=== PATIENT | female | born 1955 | race Caucasian/White ===

== ENCOUNTER 2021-04-14 04:15 | Inpatient (IN) | payer MEDICARE ==
[~2021-04-14] VITALS: Ht 157.5 cm; Wt 88.0 kg
--- NOTE | 2021-04-14 04:29 | PHYS DOC ---
General Adult EDM: Chief Complaint: ALTERED MENTAL STATUS HPI: HPI: Patient is a 65-year-old female coming in from nursing facility for altered mental status and combative behavior. Patient was found around 2:30 in the morning on the floor of her room and was combative with staff trying to bite and scratch. Patient was doing things around the room from the floor and knocked her dresser over. On EMS arrival she would answer questions correctly but was still being aggressive. They discussed with her DPOA which is her mother, who agreed to have her sedated with ketamine to come to the emergency department for evaluation. She has been at the medical [place] for 4 days for rehabilitation after a urinary tract infection. (CASSIUS MUÑIZ MD) Review of Systems: Review of Systems: All other systems within normal limits except for as noted in the HPI (CASSIUS MUÑIZ MD) Physical Exam: PE: Constitutional: Well developed, well nourished, no acute distress, non-toxic ashlyn earance. [] HENT: Normocephalic, atraumatic, bilateral external ears normal, nose normal. [] Eyes: PERRLA, conjunctiva normal, no discharge. [] Neck: No rigidity, supple, no stridor. [] Cardiovascular: Regular rate and rhythm, brisk cap refill [] Lungs & Thorax: Non labored symmetric respirations, no tachypnea or respiratory distress [] Abdomen: Soft, nondistended. Skin: Warm, dry, no erythema, no rash. [] Back: Unremarkable Extremities: No deformities, range of motion grossly intact, no lower extremity edema [] Neurologic: Alert but sedated with ketamine Psychologic: Unable to assess [] (CASSIUS MUÑIZ MD) EKG: EKG: Sinus rhythm, heart rate 86 bpm, left axis deviation, no ST elevation or depression, no ectopy. [] (CASSIUS MUÑIZ MD) Radiology/Procedures: Radiology/Procedures: [] (CASSIUS MUÑIZ MD) Impressions: PQRS Compliance Statement: One or more of the following individualized dose reduction techniques were utilized for this examination: 1. Automated exposure control 2. Adjustment of the mA and/or kV according to patient size 3. Use of iterative reconstruction technique CT HEAD AND CERVICAL SPINE WITHOUT CONTRAST History: Reason: fall, ams / Spl. Instructions: / History: Comparison: None. Procedure: Axial images are obtained of the head from the skull base through the vertex without IV contrast. Noncontrast helical CT of the cervical spine was performed. Axial, sagittal, and coronal reconstructions were obtained. Findings: The ventricles and sulci are normal for the patient's age. No mass-effect, midline shift, hemorrhage or obvious acute infarction is identified. Basilar cisterns are patent. Bone windows demonstrate no significant calvarial abnormality. There is a mucous retention cyst in the right maxillary sinus. No air-fluid level is seen. Mastoid air cells are well aerated. There is no evidence of acute fracture or acute malalignment of the cervical spine. There are no perched or jumped facet joints. There is ACDF hardware of C2-C7. There are interbody spacers at the upper 3 disc spaces and bone graft material of the lower 2 disc spaces. There is grade 1 anterolisthesis of C7 on T1. The alignment is otherwise maintained. Facet joints are fused. There is a 9 mm nodule containing a 3 mm calcification in the right parotid gland. The visualized lung apices are clear. IMPRESSION: 1. No acute intracranial abnormality. 2. No acute fracture of the cervical spine. 3. Small right parotid gland nodule. Recommend outpatient ultrasound. Electronically signed by: Marshall Roach MD (04/14/2021 7:51 AM) [id number] DICTATED AND SIGNED BY: MARSHALL ROACH MD DATE: 04/14/21 0743 CC: CASSIUS MUÑIZ MD; IAN KRAMER DO; YOSSI CID ~MTH0 0 CT scan of the abdomen and pelvis with contrast 04/14/2021 CLINICAL HISTORY: Sepsis. TECHNIQUE: After the intravenous administration of 75 cc of Omnipaque 300 only, contiguous, 5 mm axial sections were obtained through the abdomen and pelvis. One or more of the following individualized dose reduction techniques were utilized for this study: 1. Automated exposure control. 2. Adjustment of the mA and/or kV according to patient size. 3. Use of iterative reconstruction technique. FINDINGS: Images through the lung bases demonstrate mild cardiomegaly. Dependent subsegmental atelectasis is seen involving both lungs. The liver, spleen, pancreas, right adrenal gland and kidneys are within normal limits. A 2.7 cm rounded low-attenuation nodule seen involving left adrenal gland consistent with an adrenal adenoma. Atherosclerotic calcification of the abdominal aorta is seen. The abdominal aorta tapers normally. Surgical clips are seen within the gallbladder fossa consistent with a cholecystectomy. Air and stool are seen throughout the colon. There is no evidence of bowel obstruction. Patient appears to be post gastric bypass surgery. Images through the pelvis demonstrate a suprapubic catheter within urinary bladder. The urinary bladder as contracted. A moderate amount stool seen within the rectum and sigmoid colon. No adnexal mass is seen. Calcifications are seen within the pelvis consistent with phleboliths. No free fluid is noted. Mild S-shaped curvature of the thoracolumbar spine is seen. The patient is post fusion using pedicle screws and stabilizing rods extending from L3 to L5. Bone graft material seen within the L3-4 disc space. Degenerative changes are seen involving lower thoracic and throughout the lumbar spine. IMPRESSION: No acute abnormality is seen. Electronically signed by: Blake Cruz MD (04/14/2021 7:44 AM) [id number] DICTATED AND SIGNED BY: BLAKE CRUZ MD DATE: 04/14/21736 CC: CASSIUS MUÑIZ MD; IAN KRAMER DO; YOSSI CID ~MTH0 0 XR CHEST 1V Clinical Indication: Reason: ams / Spl. Instructions: / History: Comparison: None. Findings: The cardiomediastinal silhouette is normal. There are diffuse interstitial opacities in the bilateral lungs. There is no pneumothorax. No pleural effusion is appreciated. No acute bone abnormality. There are probably old left lateral rib fractures inferiorly. There is ACDF hardware of the cervical spine. IMPRESSION: Diffuse interstitial opacities in the lungs may be pulmonary edema, interstitial pneumonia, atelectasis, or chronic interstitial lung disease. Electronically signed by: Marshall Roach MD (04/14/2021 8:12 AM) [id number] DICTATED AND SIGNED BY: MARSHALL ROACH MD DATE: 04/14/21809 CC: CASSIUS MUÑIZ MD; AIN KRAMER DO; YOSSI CID ~MTH0 0 (IAN KRAMER DO) Heart Score: C/O Chest Pain: N/A Risk Factors: Risk Factors: DM, Current or recent (<one month) smoker, HTN, HLP, family history of CAD, obesity. Risk Scores: Score 0 - 3: 2.5% MACE over next 6 weeks - Discharge Home Score 4 - 6: 20.3% MACE over next 6 weeks - Admit for Clinical Observation Score 7 - 10: 72.7% MACE over next 6 weeks - Early Invasive Strategies (CASSIUS MUÑIZ MD) C/O Chest Pain: N/A (IAN KRAMER DO) Course & Med Decision Making: Course & Med Decision Making Pending imaging and placement at shift change (CASSIUS MUÑIZ MD) Course & Med Decision Making All the patient's imaging is unremarkable. Her urinalysis does suggest UTI. We will treat her has urinary tract infection. Her drug screen is also positive for methamphetamines or amphetamines. These medications are not in her medication list from the care facility. The patient has required Ativan for agitation. I will admit her for UTI, partial mental status, methamphetamine intoxication. I spoke Dr. Godoy and he is excepted the patient for admission. (IAN KRAMER DO) Dragon Disclaimer: Dragon Disclaimer: This electronic medical record was generated, in whole or in part, using a voice recognition dictation system. (CASSIUS MUÑIZ MD) Departure Departure: Impression: Primary Impression: UTI (urinary tract infection) Qualified Codes: N30.01 - Acute cystitis with hematuria Additional Impressions: Methamphetamine intoxication Altered mental status Qualified Codes: R41.0 - Disorientation, unspecified Disposition: ADMITTED INPATIENT Admitting Physician: Adalberto Godoy (IAN KRAMER DO) Condition: STABLE CASSIUS MUÑIZ MD Apr 14, 2021 04:28 IAN KRAMER DO Apr 14, 2021 08:22
[2021-04-14 05:22] LABS: BASO % 0 % (0-3); EOS # 0.3 x10^3/uL (0.0-0.7); EOS % 2 % (0-3); HEMATOCRIT 38.3 % (36.0-47.0); HEMOGLOBIN 12.5 g/dL (12.0-15.5); LYMPH # 1.1 x10^3/uL (1.0-4.8); LYMPH % 7 % (24-48); MEAN CORPUSCULAR HEMOGLOBIN 32 pg (25-35); MEAN CORPUSCULAR HGB CONC 33 g/dL (31-37); MEAN CORPUSCULAR VOLUME 97 fL (79-100); MONO # 0.9 x10^3/uL (0.0-1.1); MONO % 6 % (0-9); NEUT # 13.3 x10^3uL (1.8-7.7); NEUT % 85 % (31-73); PLATELET COUNT 398 x10^3/uL (140-400); RED BLOOD COUNT 3.94 x10^6/uL (3.50-5.40); RED CELL DISTRIBUTION WIDTH 17.6 % (11.5-14.5); WHITE BLOOD COUNT 15.6 x10^3/uL (4.0-11.0)
[2021-04-14 05:30] LABS: CALCIUM 8.5 mg/dL (8.5-10.1); CREATININE 1.3 mg/dL (0.6-1.0); GFR 41.1; POTASSIUM 4.4 mmol/L (3.5-5.1)
[2021-04-14 05:38] LABS: % BANDS 2 % (0-9); % EOS 4 % (0-5); % LYMPHS 12 % (24-48); % MONOS 1 % (0-10); % SEGS 81 % (35-66)
[2021-04-14 05:39] LABS: PLT ESTIMATE ADEQUATE (ADEQUATE)
[2021-04-14 05:42] LABS: ALBUMIN 3.1 g/dL (3.4-5.0); ALBUMIN/GLOBULIN RATIO 0.8 (1.0-1.7); MAGNESIUM 2.3 mg/dL (1.8-2.4); PHOSPHORUS 4.4 mg/dL (2.6-4.7); TOTAL BILIRUBIN 0.8 mg/dL (0.2-1.0)
--- NOTE | 2021-04-14 05:44 | EKG ---
[address] [address] Test Date: 2021-04-14 Test Time: 04:55:45 Pat Name: FELI COOPER Department: Room: Gender: F Refrigeration Lead: : 1955 Requested By: CASSIUS MUÑIZ Order Number: [id number] Reading MD: Julius Méndez Measurements Intervals [place] Rate: 90 P: 48 NH: 132 QRS: -10 QRSD: 80 T: 47 QT: 372 QTc: 459 Interpretive Statements SINUS RHYTHM LEFTWARD AXIS Electronically Signed On 05-03-2021 8:27:21 COLLAR PACKER by Julius Méndez
[2021-04-14] MEDS ORDERED: IV NORMAL SALINE 1,000ML 1,000 ML IV ONE (05:45)
[2021-04-14] MEDS ORDERED: IOHEXOL 300 MG/ML 75 ML VIAL. IV ONE (06:00)
[2021-04-14] MEDS ORDERED: CONTRAST GIVEN. MC PRN (06:00)
[2021-04-14 06:23] LABS: BARBITURATES NEG (NEG); BENZODIAZEPINES NEG (NEG); CANNABINOIDS NEG (NEG); COCAINE NEG (NEG); METHADONE NEG (NEG); OPIATES NEG (NEG); PHENCYCLIDINE NEG (NEG)
[2021-04-14 06:24] LABS: AMPHETAMINE/METHAMPHETAMINE POS (NEG)
[2021-04-14 06:34] LABS: CLARITY,URINE BLOODY; COLOR,URINE RED
[2021-04-14 06:36] LABS: BACTERIA,URINE FEW /HPF (0-FEW); RBC,URINE TNTC /HPF (0-2); SQUAMOUS EPITHELIAL CELL,UR FEW /LPF; WBC,URINE >40 /HPF (0-4)
--- NOTE | 2021-04-14 07:47 | RAD ---
CT scan of the abdomen and pelvis with contrast 04/14/2021 CLINICAL HISTORY: Sepsis. TECHNIQUE: After the intravenous administration of 75 cc of Omnipaque 300 only, contiguous, 5 mm axia l sections were obtained through the abdomen and pelvis. One or more of the following individualized dose reduction techniques were utilized for this study: 1. Automated exposure control. 2. Adjustment of the mA and/or kV according to patient size. 3. Use of iterative reconstruction technique. FINDINGS: Images through the lung bases demonstrate mild cardiomegaly. Dependent subsegmental atelect asis is seen involving both lungs. The liver, spleen, pancreas, right adrenal gland and kidneys are within normal limits. A 2.7 cm round ed low-attenuation nodule seen involving left adrenal gland consistent with an adrenal adenoma. Atherosclerotic calcification of the abdominal aorta is seen. The abdominal aorta tapers normally. Reed rgical clips are seen within the gallbladder fossa consistent with a cholecystectomy. Air and stool a re seen throughout the colon. There is no evidence of bowel obstruction. Patient appears to be post g astric bypass surgery. Images through the pelvis demonstrate a suprapubic catheter within urinary bladder. The urinary bladd er as contracted. A moderate amount stool seen within the rectum and sigmoid colon. No adnexal mass i s seen. Calcifications are seen within the pelvis consistent with phleboliths. No free fluid is noted . Mild S-shaped curvature of the thoracolumbar spine is seen. The patient is post fusion using pedicle screws and stabilizing rods extending from L3 to L5. Bone graft material seen within the L3-4 disc sp gideon. Degenerative changes are seen involving lower thoracic and throughout the lumbar spine. IMPRESSION: No acute abnormality is seen. Electronically signed by: Blake Cruz MD (04/14/2021 7:44 AM) [id number]
--- NOTE | 2021-04-14 07:54 | RAD ---
PQRS Compliance Statement: One or more of the following individualized dose reduction techniques were utilized for this examinat ion: 1. Automated exposure control 2. Adjustment of the mA and/or kV according to patient size 3. Use of iterative reconstruction technique CT HEAD AND CERVICAL SPINE WITHOUT CONTRAST History: Reason: fall, ams / Spl. Instructions: / History: Comparison: None. Procedure: Axial images are obtained of the head from the skull base through the vertex without IV co ntrast. Noncontrast helical CT of the cervical spine was performed. Axial, sagittal, and coronal rec onstructions were obtained. Findings: The ventricles and sulci are normal for the patient's age. No mass-effect, midline shift, hemorrhage or obvious acute infarction is identified. Basilar cistern s are patent. Bone windows demonstrate no significant calvarial abnormality. There is a mucous retention cyst in the right maxillary sinus. No air-fluid level is seen. Mastoid ai r cells are well aerated. There is no evidence of acute fracture or acute malalignment of the cervical spine. There are no perched or jumped facet joints. There is ACDF hardware of C2-C7. There are interbody spa cers at the upper 3 disc spaces and bone graft material of the lower 2 disc spaces. There is grade 1 anterolisthesis of C7 on T1. The alignment is otherwise maintained. Facet joints are fused. There is a 9 mm nodule containing a 3 mm calcification in the right parotid gland. The visualized viry g apices are clear. IMPRESSION: 1. No acute intracranial abnormality. 2. No acute fracture of the cervical spine. 3. Small right parotid gland nodule. Recommend outpatient ultrasound. Electronically signed by: Marshall Roach MD (04/14/2021 7:51 AM) [id number]
--- NOTE | 2021-04-14 08:14 | RAD ---
XR CHEST 1V Clinical Indication: Reason: ams / Spl. Instructions: / History: Comparison: None. Findings: The cardiomediastinal silhouette is normal. There are diffuse interstitial opacities in the bilateral lungs. There is no pneumothorax. No pleural effusion is appreciated. No acute bone abnormality. Ther e are probably old left lateral rib fractures inferiorly. There is ACDF hardware of the cervical spin e. IMPRESSION: Diffuse interstitial opacities in the lungs may be pulmonary edema, interstitial pneumonia, atelectas is, or chronic interstitial lung disease. Electronically signed by: Marshall Roach MD (04/14/2021 8:12 AM) [id number]
[2021-04-14] MEDS ORDERED: cefTRIAXone SODIUM 1 GM VIAL ONE (10:50)
[2021-04-14] MEDS ORDERED: IV NORMAL SALINE 50ML 50 ML ONE (10:50)
--- NOTE | 2021-04-14 11:49 | HP ---
DATE OF SERVICE: 04/14/2021 ADMIT DATE: 04/14/2021 ATTENDING PHYSICIAN: Dr. Godoy. CHIEF COMPLAINT: Altered mentation. HISTORY OF PRESENT ILLNESS: The patient is a 65-year-old female, detention resident in [facility]. She was found to have altered mentation, confused, and very combative. She was found lying on the floor of her room. She was trying to hit, bite and scratch her staff. Her mom gave permission for EMS personnel to administer ketamine. She was admitted to the hospitalist service for further treatment and evaluation. She is still combative. Unfortunately, we had to give her several doses of Ativan. The workup in the ED showed no new strokes. She is admitted for altered mentation and other medical issues. They found a urinary tract infection and cultures are pending. Antibiotics have been started. PAST MEDICAL HISTORY: Significant for anxiety disorder, chronic diastolic congestive heart failure, chronic kidney disease stage 3, cognitive deficits; convulsions, idiopathic; history of GI bleed, idiopathic neuropathy, iron deficiency anemia, a report of being a malingering and having conversion reaction, TIA, spinal stenosis, chronic pain syndrome, previous bariatric surgery, major depression and hypothyroidism. ALLERGIES: SHE HAS ALLERGIES TO CIPROFLOXACIN, CLINDAMYCIN, AND MORPHINE. MEDICATIONS: Her medication list reviewed from the detention. She was on albuterol, Lipitor, baclofen, BuSpar, potassium, Protonix, senna, trazodone, Trelegy Ellipta, vitamin C, vitamin D, Voltaren gel. SOCIAL HISTORY: She was a smoker in the past. FAMILY HISTORY: Unobtainable. REVIEW OF SYSTEMS: Unobtainable due to patient's mental state. PHYSICAL EXAMINATION: GENERAL: When I saw her, this is an elderly, confused, agitated female, who is thrashing about. VITAL SIGNS: Initial vital signs showed a blood pressure 135/62, pulse is 82 and regular. She was afebrile, oxygen saturation 95% on room air. HEENT: Head is without trauma. Pupils are reactive. Sclerae nonicteric. Oropharynx is clear. NECK: Supple, no bruits. LUNGS: Shallow respirations. CARDIOVASCULAR: Regular heart tones. ABDOMEN: Soft. EXTREMITIES: Show trace edema. NEUROLOGIC: Very combative, requiring restraints. She is not aware of what is going on. PERTINENT LABORATORY STUDIES: The hemoglobin is 12.5 g/dL with a white count of 15,600. Chemistry panel: Creatinine 1.3 mg percent. Electrolytes within normal range. Toxicology screen positive for methamphetamine products. Ethyl alcohol was negative. Serology negative for rapid COVID swab. The obligatory CT of the head along with a spine CT and abdominal pelvic exam showed no evidence of acute infiltrate. There is some diffuse interstitial opacity in the lungs. Chronic interstitial lung disease. No acute strokes identified. ASSESSMENT: 1. This 65-year-old female has altered mentation. 2. Dementia with combative behavior, requiring ketamine for sedation. 3. Urinary tract infection. 4. Substance abuse with methamphetamine found in her system. 5. Depressive disorder. 6. Multiple other medical issues. PLAN: 1. Admit to the inpatient unit. 2. Gentle IV hydration. 3. Ativan p.r.n. 4. Meds reviewed and will be simplified. I will try to contact her durable power of district attorney when available. WALT DR: Elaine TID: [id number]
[2021-04-14] MEDS ORDERED: ONDANSETRON PF 4 MG/2 ML VIAL. IVP PRN (14:00)
[2021-04-14 15:44] VITALS: BP 129/74
[2021-04-14] MEDS ORDERED: VITA100C11 PO (16:12)
[2021-04-14] MEDS ORDERED: LIDO700A21 TP (16:12)
[2021-04-14] MEDS ORDERED: ALBU0.63 INH (16:12)
[2021-04-14] MEDS ORDERED: FLUO40CA2 PO (16:12)
[2021-04-14] MEDS ORDERED: MENT200L TP (16:12)
[2021-04-14] MEDS ORDERED: ASCO500C PO (16:12)
[2021-04-14] MEDS ORDERED: DICL20GE TP (16:12)
[2021-04-14] MEDS ORDERED: CHOL500021 PO (16:12)
[2021-04-14] MEDS ORDERED: OXYC1TAB17 PO (16:12)
[2021-04-14] MEDS ORDERED: BUSP15TA PO (16:12)
[2021-04-14] MEDS ORDERED: NYST15PO9 TP (16:12)
[2021-04-14] MEDS ORDERED: SENN1TAB62 PO (16:12)
[2021-04-14] MEDS ORDERED: FURO40TA4 PO (16:12)
[2021-04-14] MEDS ORDERED: TRAZ-120 PO (16:12)
[2021-04-14] MEDS ORDERED: OLAN2.5T3 PO (16:12)
[2021-04-14] MEDS ORDERED: ATOR10TA60 PO (16:12)
[2021-04-14] MEDS ORDERED: LEVO125T5 PO (16:12)
[2021-04-14] MEDS ORDERED: POTA10TA12 PO (16:12)
[2021-04-14] MEDS ORDERED: FLUT1BLS3 INH (16:12)
[2021-04-14] MEDS ORDERED: OXYB5TAB10 PO (16:12)
[2021-04-14] MEDS ORDERED: PANT40TA3 PO (16:12)
[2021-04-14] MEDS ORDERED: GABA-586 PO (16:12)
[2021-04-14] MEDS ORDERED: BACL10TA PO (16:12)
[2021-04-14] MEDS ORDERED: LEVE10007 PO (16:12)
[2021-04-14] MEDS: ACETAMINOPHEN 325 MG TABLET PO PRN (18:16)
[2021-04-14 19:55] VITALS: BP 106/64
[2021-04-14 23:11] VITALS: BP 113/69
[2021-04-15] MEDS: ACETAMINOPHEN 325 MG TABLET PO PRN (03:13)
[2021-04-15 06:31] VITALS: BP 108/66
--- NOTE | 2021-04-15 10:35 | PN ---
DATE: 04/15/2021 ATTENDING PHYSICIAN: Dr. Godoy. SUBJECTIVE: The patient is arousable, but sleepy. She has no insight into what is going on. She has no memory of what happened yesterday. OBJECTIVE FINDINGS: VITAL SIGNS: Blood pressure this morning is 108/68, pulse is 65 and regular. She is afebrile. Oxygen saturation 93% on room air. HEENT: Head is without trauma. Pupils are reactive. Sclerae nonicteric. Oropharynx is clear. NECK: Supple, no bruits. LUNGS: Shallow respirations. CARDIOVASCULAR: Regular heart tones. ABDOMEN: Soft. EXTREMITIES: Show trace edema. NEUROLOGIC: The patient is confused and agitated. LABORATORY DATA: Serology was negative for coronavirus. The obligatory CT of the head showed no acute strokes or bleeds. ASSESSMENT: 1. A 65-year-old [facility] patient with altered mentation, better controlled. 2. Underlying substance abuse. 3. Dementia. 4. Mild dehydration. 5. Chronic medical issues. PLAN: 1. Medications have been simplified. 2. Diet as tolerated. 3. We will work on discharge back to the [place] [facility] for tomorrow. SORAYA/SHAHAB/REGINO DR: SORAYA/saloni TID: [id number]
[2021-04-15 11:18] VITALS: BP 129/65
[2021-04-15] MEDS: oxyCODONE/APAP 10/325 1 TAB TABLET PO PRN ×3 (12:49→18:14)
[2021-04-15 16:13] VITALS: BP 121/75
[2021-04-15 19:00] VITALS: BP 113/70
[2021-04-15] MEDS: LORazepam 1 MG TABLET PO PRN (21:26)
[2021-04-15] MEDS: CEPHALEXIN 250 MG CAPSULE PO SCH (21:26)
[2021-04-15 23:00] VITALS: BP 113/69
[2021-04-16] MEDS: oxyCODONE/APAP 10/325 1 TAB TABLET PO PRN ×3 (00:28→18:24)
[2021-04-16] MEDS: LORazepam 1 MG TABLET PO PRN (02:10)
[2021-04-16 05:00] VITALS: BP 100/62
[2021-04-16] MEDS: CEPHALEXIN 250 MG CAPSULE PO SCH ×3 (10:11→20:03)
[2021-04-16] MEDS: LACTOBACILLUS RHAMNOSUS GG 1 CAPSULE. PO SCH ×2 (10:11→20:03)
--- NOTE | 2021-04-16 11:31 | PN ---
DATE: 04/16/2021 ATTENDING PHYSICIAN: Dr. Godoy. SUBJECTIVE: The patient is alert today. She is calm. We actually had a fairly normal conversation. She has no deficits. Speech is fluent. She does not remember what happened. OBJECTIVE FINDINGS: VITAL SIGNS: Blood pressure this morning is 113/69. She is afebrile, pulse 74 and regular, oxygen saturation 93% on room air. HEENT: Head is without trauma. Oropharynx clear. NECK: Supple. No bruits. LUNGS: Good breath sounds. CARDIOVASCULAR: Regular heart tones. ABDOMEN: Soft. EXTREMITIES: Show trace edema. LABORATORY DATA: Admission hemoglobin was 12.5 grams. Blood cultures were positive for gram-positive cocci. Whether this is a contaminant remains to be seen. The ID and sensitivity is still pending. She is on empiric antibiotics. We have her on some oral Keflex, but clinically, she is not septic. ASSESSMENT: 1. A 65-year-old female with acute delirium, requiring sedation before calming down. 2. History of substance abuse. 3. Dementia. 4. Mild dehydration. 5. Positive blood cultures, without symptoms of sepsis. 6. Frequent urinary tract infections. PLAN: 1. Continue oral antibiotics. Her IVs were unable to be placed. 2. Diet as tolerated. 3. Medications simplified. 4. We are working on placement. The daughter wants her at [facility]. We will call first thing tomorrow morning. SORAYA/TIFFANI MARTÍNEZ: SORAYA/saloni TID: [id number]
[2021-04-16 15:48] VITALS: BP 121/73
[2021-04-16 20:13] VITALS: BP 94/56
[2021-04-17] MEDS: oxyCODONE/APAP 10/325 1 TAB TABLET PO PRN ×4 (03:15→20:49)
[2021-04-17] MEDS: LACTOBACILLUS RHAMNOSUS GG 1 CAPSULE. PO SCH ×2 (07:51→20:49)
[2021-04-17] MEDS: CEPHALEXIN 250 MG CAPSULE PO SCH ×3 (07:51→20:49)
[2021-04-17 10:41] LABS: AMPHETAMINE/METHAMPHETAMINE NEG (NEG); BARBITURATES NEG (NEG); BENZODIAZEPINES NEG (NEG); CANNABINOIDS NEG (NEG); COCAINE NEG (NEG); METHADONE NEG (NEG); OPIATES POS (NEG); PHENCYCLIDINE NEG (NEG)
[2021-04-17 10:58] VITALS: BP 108/68
--- NOTE | 2021-04-17 13:11 | PN ---
DATE: 04/17/2021 ATTENDING PHYSICIAN: Dr. Godoy. SUBJECTIVE: The patient is very calm today. She is comfortable. She had a shower. She has no new complaints. OBJECTIVE FINDINGS: VITAL SIGNS: Blood pressure this morning is 121/73. She is afebrile. Oxygen saturation 92% on room air. HEENT: Head is without trauma. Pupils are reactive. Sclerae nonicteric. Oropharynx clear. NECK: Supple. LUNGS: Clear. CARDIOVASCULAR: Regular heart tones. ABDOMEN: Soft. No guarding or rebound tenderness. EXTREMITIES: Without edema. NEUROLOGIC: Function focally intact. Speech is fluent. No focal deficits. ASSESSMENT: 1. A 65-year-old female with acute delirium in the alf, requiring sedation. She is now stable. 2. History of substance abuse. 3. Mild dementia, now improved. 4. Dehydration, rehydrated. 5. Positive blood cultures without symptoms of sepsis. 6. Frequent urinary tract infections. PLAN: 1. Continue oral antibiotics as ordered. 2. Diet as tolerated. 3. I shall track down her ID and sensitivity of her bacteria. 4. We are working on placement. SIXTO DR: Elaine TID: [id number]
[2021-04-17 15:28] VITALS: BP 100/65
[2021-04-17 19:00] VITALS: BP 129/74
[2021-04-17] MEDS: NYSTATIN TOPICAL POWDER 15GM BOTTLE. TP SCH (21:37)
[2021-04-17] MEDS: LORazepam 1 MG TABLET PO PRN (21:37)
[2021-04-17 23:00] VITALS: BP 123/70
[2021-04-18 05:00] VITALS: BP 130/70
[2021-04-18] MEDS: oxyCODONE/APAP 10/325 1 TAB TABLET PO PRN ×3 (07:42→20:36)
[2021-04-18] MEDS: LACTOBACILLUS RHAMNOSUS GG 1 CAPSULE. PO SCH ×2 (07:42→20:36)
[2021-04-18] MEDS: CEPHALEXIN 250 MG CAPSULE PO SCH (07:42)
[2021-04-18] MEDS: NYSTATIN TOPICAL POWDER 15GM BOTTLE. TP SCH ×2 (09:00→21:00)
[2021-04-18] MEDS: LORazepam 1 MG TABLET PO PRN (19:10)
[2021-04-18 19:24] VITALS: BP 101/64
--- NOTE | 2021-04-18 21:29 | PN ---
DATE: 04/18/2021 ATTENDING PHYSICIAN: Dr. Godoy. SUBJECTIVE: Calm, still bedridden, very weak, but she is alert. She has no new complaints. OBJECTIVE FINDINGS: VITAL SIGNS: Blood pressure this morning is 123/70 mmHg, pulse is 65 and regular. She is afebrile. Oxygen saturation 95% on room air. HEENT: Head is without trauma. Pupils are reactive. Oropharynx is clear. NECK: Supple. LUNGS: Clear. CARDIOVASCULAR: Regular heart tones. ABDOMEN: Soft. EXTREMITIES: Without edema. Solo catheter remains in place due to her longstanding history of neurogenic bladder. She wants to leave it in. ASSESSMENT: 1. A 65-year-old female with acute altered mentation with delirium in a [place] [facility] setting, stable at this time. 2. History of substance abuse. 3. Mild dementia, now improved. 4. Mild dehydration, rehydrated. 5. She had positive blood cultures without any symptoms. I suspect these were contaminant. The microbiology report rule out Staphylococcus epidermidis, which in my opinion is a contaminant. She is not septic at this time, has no other localizing sign. PLAN: 1. I will take the liberty of stopping her antibiotics as this is a contaminant. She is quite stable. 2. Diet as tolerated. 3. Medication simplified. 4. Await placement. SEAMUS DR: Elaine TID: [id number]
[2021-04-19] MEDS: oxyCODONE/APAP 10/325 1 TAB TABLET PO PRN ×2 (03:25→10:15)
[2021-04-19 05:39] VITALS: BP 116/68
[2021-04-19] MEDS: LACTOBACILLUS RHAMNOSUS GG 1 CAPSULE. PO SCH (08:56)
[2021-04-19] MEDS: NYSTATIN TOPICAL POWDER 15GM BOTTLE. TP SCH (08:56)
== END 2021-04-19 14:04 | DRG 689 ==
LOC: ER 04:15 → 1 SOUTH 13:56
PROVIDERS: ADMIT Hospitalist; ATTEND Hospitalist
DX: N30.01 Acute cystitis with hematuria (principal); R53.2 Functional quadriplegia; I50.32 Chronic diastolic (congestive) heart failure; F03.90 Unspecified dementia, unspecified severity, without behavioral disturbance, psychotic disturbance, mood disturbance, and anxiety; F15.129 Other stimulant abuse with intoxication, unspecified; N18.30 Chronic kidney disease, stage 3 unspecified; G89.4 Chronic pain syndrome; E03.9 Hypothyroidism, unspecified; F32.A Depression, unspecified; E86.0 Dehydration; Z98.84 Bariatric surgery status; Z87.891 Personal history of nicotine dependence; Z86.73 Personal history of transient ischemic attack (TIA), and cerebral infarction without residual deficits; Z74.01 Bed confinement status; Z88.1 Allergy status to other antibiotic agents; Z20.822 Contact with and (suspected) exposure to COVID-19; Z87.440 Personal history of urinary (tract) infections
CPT/HCPCS: 36415; 70450; 71045; 72125; 74177; 80053; 80307; 81001; 82550; 82803; 83605; 83735; 83880; 84100; 84484; 85007; 85025; 87040; 87077; 87086; 87186; 87205; 87426; 93005; 96361; 96374; G0480; J0696; J2060; Q9967; U0003; 97530; 99285-25; J7030